=== PATIENT | female | born 1995 | race Caucasian/White ===

== ENCOUNTER 2020-04-07 06:55 | Emergency (ER) | payer MEDICAID, OTHER ==
[~2020-04-07] VITALS: Ht 160 cm; Wt 81.6 kg
[2020-04-07 07:01] VITALS: BP_SYST 152
[2020-04-07] MEDS ORDERED: TETRACAINE HCL/PF 0.5% OPHTHALMIC DROPS 4 ML OP ONE ×2 (08:30→08:38)
[2020-04-07 09:32] VITALS: BP_SYST 134
== END 2020-04-07 09:32 | disposition home or self-care (01) ==
LOC: SED 06:55
DX: T15.92XA Foreign body on external eye, part unspecified, left eye, initial encounter (principal); J45.909 Unspecified asthma, uncomplicated; X58.XXXA Exposure to other specified factors, initial encounter; Y93.89 Activity, other specified; Y92.89 Other specified places as the place of occurrence of the external cause; Y99.8 Other external cause status
CPT/HCPCS: 99284